=== PATIENT | female | born 1970 | race African-American/Black ===

== ENCOUNTER 2018-07-22 02:45 | Emergency (ER) | payer OTHER ==
[~2018-07-22] VITALS: Ht 160 cm; Wt 65.3 kg
[2018-07-22] MEDS ORDERED: NKM (02:59)
[2018-07-22 03:00] VITALS: BP 130/89
[2018-07-22] MEDS ORDERED: Morphine Sulfate 4mg/ml Inj (IV USE ONLY) IVP ONE (03:30)
[2018-07-22] MEDS ORDERED: Ketorolac 30mg Inj IV ONE (03:30)
--- NOTE | 2018-07-22 03:39 | Emergency Room Report ---
History of Present Illness General Chief Complaint: Abdominal Pain Source: Patient Present Illness HPI Is a 48-year-old female with a large fibroid. She has authorization to see a senior receptionist for possible surgery. She was started on control pill. She presents with chief complaint abdominal pain. Diffuse in nature radiating to the back. Ongoing for the last 3 days but no fever chills but no nausea no vomiting. Pain is sharp in nature. 7 out of 10. Nothing made it better. Nothing made it worse. No nausea no vomiting or diarrhea. No urinary complaint. Allergies: Coded Allergies: No Known Allergies (Unverified , 07/22/18) Patient History Past Medical History: see triage record, old chart reviewed Past Surgical History: other Pertinent Family History: none Social History: Denies: smoking Last Menstrual Period: last week Now: No Immunizations: other Reviewed Nursing Documentation: PMH: Agreed; PSxH: Agreed Review of Systems Eye: Denies: eye pain, blurred vision ENT: Denies: ear pain, nose congestion, throat swelling Respiratory: Denies: cough, shortness of breath Cardiovascular: Denies: chest pain, palpitations Gastrointestinal: Reports: abdominal pain; Denies: diarrhea, nausea, vomiting Musculoskeletal: Denies: back pain, joint pain Skin: Denies: rash Neurological: Denies: headache, numbness Endocrine: Denies: increased thirst, increased urine Hematologic/Lymphatic: Denies: easy bruising All Other Systems: negative except mentioned in HPI Physical Exam Vital Signs Date Time Temp Pulse Resp B/P (MAP) Pulse Ox O2 Delivery O2 Flow Rate FiO2 07/22/18 02:53 99.6 122 18 129/89 96 Room Air 99.7 vitals with tachycardia Sp02 EP Interpretation: reviewed, normal General Appearance: well appearing, no apparent distress, alert Head: normocephalic, atraumatic Eyes: bilateral eye PERRL, bilateral eye EOMI ENT: hearing grossly normal, normal pharynx Neck: full range of motion, supple, no meningismus Respiratory: chest non-tender, lungs clear, normal breath sounds Cardiovascular #1: regular rate, rhythm, no murmur Gastrointestinal: normal bowel sounds, no organomegaly, no bruit, non-distended , tenderness - diffuse tenderness. Fullness to the lower quadrants, possibly from fibroid Musculoskeletal: back normal, gait/station normal, normal range of motion Psychiatric: mood/affect normal Skin: warm/dry Medical Decision Making Diagnostic Impression: Primary Impression: Abdominal pain Qualified Codes: R10.30 - Lower abdominal pain, unspecified Additional Impression: Fibroid uterus Qualified Codes: D25.9 - Leiomyoma of uterus, unspecified ER Course She with abdominal pain probably secondary to large fibroid. No evidence of any obstruction or acute abdomen. No evidence of infection. We'll discharge home. She scheduled to see HISTORIC INTERPRETER. CT/MRI/US Diagnostic Results CT/MRI/US Diagnostic Results : Imaging Test Ordered: CT abdomen and pelvis Impression Read by radiologist. Large fibroids. No acute process. Last Vital Signs Date Time Temp Pulse Resp B/P (MAP) Pulse Ox O2 Delivery O2 Flow Rate FiO2 07/22/18 02:53 99.6 122 18 129/89 96 Room Air 99.7 Status: improved Disposition: HOME, SELF-CARE Condition: Stable Scripts Ibuprofen* (MOTRIN*) 600 Mg Tablet 600 MG ORAL THREE TIMES A DAY, #30 TAB 0 Refills Prov: CEASAR MEDINA M.D. 07/22/18 Referrals: NON PHYSICIAN (PCP) Additional Instructions: Follow-up with your doctor in 7 days. Return if symptom worsen. CEASAR MEDINA M.D. Jul 22, 2018 03:39
[2018-07-22 03:43] LABS: APPEARANCE,URINE CLEAR; BILIRUBIN, URINE NEGATIVE (NEGATIVE); COLOR,URINE PALE YELLOW; GLUCOSE, URINE (UA) NEGATIVE (NEGATIVE); KETONES,URINE NEGATIVE (NEGATIVE); LEUKOCYTE ESTERASE ,URINE NEGATIVE (NEGATIVE); NITRITE,URINE NEGATIVE (NEGATIVE); PH,URINE 7 (4.5-8.0); PROTEIN,URINE 2+ (NEGATIVE); UROBILINOGEN,URINE NORMAL MG/DL (0.0-1.0)
[2018-07-22 03:46] LABS: HEMATOCRIT 30.4 % (37.0-47.0); HEMOGLOBIN 8.8 G/DL (12.0-16.0); MEAN CORPUSCULAR VOLUME 67 FL (80-99); PLATELET COUNT 315 K/UL (150-450); RED BLOOD COUNT 4.54 M/UL (4.20-5.40); RED CELL DISTRIBUTION WIDTH 15.5 % (11.6-14.8); WHITE BLOOD COUNT 12.1 K/UL (4.8-10.8)
[2018-07-22 03:57] LABS: ANION GAP 7 mmol/L (5-15); BLOOD UREA NITROGEN 9 mg/dL (7-18); CALCIUM 8.8 MG/DL (8.5-10.1); CARBON DIOXIDE 27 MMOL/L (21-32); CHLORIDE 104 MMOL/L (98-107); CREATININE 0.9 MG/DL (0.55-1.30); POTASSIUM 3.3 MMOL/L (3.5-5.1); SODIUM 138 MMOL/L (136-145)
[2018-07-22 04:02] LABS: ALANINE AMINOTRANSFERASE 22 U/L (12-78); ALBUMIN 3.3 G/DL (3.4-5.0); ALBUMIN/GLOBULIN RATIO 0.8 (1.0-2.7); ALKALINE PHOSPHATASE 37 U/L (46-116); ASPARTATE AMINO TRANSFERASE 29 U/L (15-37); BILIRUBIN,TOTAL 0.3 MG/DL (0.2-1.0)
--- NOTE | 2018-07-22 04:57 | Diagnostic Imaging Report ---
EXAM: CT Abdomen and Pelvis Without Intravenous Contrast CLINICAL HISTORY: ABD PAIN TECHNIQUE: Axial computed tomography images of the abdomen and pelvis without intravenous contrast. CTDI is 11 mGy and DLP is 552 mGy-cm. One or more of the following dose reduction techniques were used: automated exposure control, adjustment of the mA and/or kV according to patient size, use of iterative reconstruction technique. COMPARISON: No relevant prior studies available. FINDINGS: Lung bases: Unremarkable. No mass. No consolidation. ABDOMEN: Liver: ... There is a 7 mm cyst in the right hepatic lobe. A tiny focus of decreased attenuation too small to characterize, however benign given its small size in the left hepatic lobe. Gallbladder and bile ducts: Unremarkable. No calcified stones. No ductal dilation. Pancreas: Unremarkable. No ductal dilation. Spleen: Unremarkable. No splenomegaly. Adrenals: Unremarkable. No mass. Kidneys and ureters: Unremarkable. No obstructing stones. No hydronephrosis. Stomach and bowel: There is mass effect splaying loops of bowel. There is mass effect on the urinary bladder. No obstruction. PELVIS: Appendix: No findings to suggest acute appendicitis. Bladder: See above. Reproductive: Uterus is markedly enlarged due to multiple fibroids measuring 18.7 cm in length by 10.0 cm AP dimension by 11.7 cm transversely. The fundus of the uterus extends into the lower abdomen. ABDOMEN and PELVIS: Intraperitoneal space: There is a small amount of free fluid in the cul-de-sac and left anterior pelvis. No free air. Bones/joints: No acute fracture. No dislocation. Soft tissues: A small fat-containing umbilical hernia defect measures 1.1 cm. Vasculature: Unremarkable. No abdominal aortic aneurysm. Lymph nodes: Unremarkable. No enlarged lymph nodes. IMPRESSION: 1. Markedly enlarged fibroid uterus which causes mass effect on adjacent structures as described above. 2. No other acute abdominal or pelvic pathology.
[2018-07-22 05:00] VITALS: BP 127/90
[2018-07-22] MEDS ORDERED: IBUPROFEN600 MG ORAL (05:25)
[2018-07-22 05:30] VITALS: BP 127/90
== END 2018-07-22 05:30 | disposition home or self-care (01) ==
LOC: EMR 02:59
DX: D25.9 Leiomyoma of uterus, unspecified (principal)
CPT/HCPCS: 36415; 74176; 80053; 81003; 81025; 83690; 85025; 96361; 96374; 96375; 99284; J1885; J2270; J2405